=== PATIENT | male | born 1940 | race Two or more races ===

== ENCOUNTER → 2024-05-07 | Outpatient (CLI) | payer MEDICARE, MEDICAID, SELFPAY ==
--- NOTE | 2024-05-07 14:00 | XR_ITS ---
Examination: Soft tissue extremity right groin TECHNIQUE: Multiple high resolution grayscale sonographic images soft tissue right groin Exam date and time: May 07, 2024 1352 hours INDICATIONS: Clinical diagnosis right inguinal hernia 6 months FINDINGS: Bowel present in right inguinal hernia defect, peristalsis present in the defect, the defect at least 8 cm in dimension IMPRESSION: Bowel containing right inguinal hernia defect Consider CT scan pelvis follow-up to best assess for incarcerated bowel
== END | disposition home or self-care (01) ==
PROVIDERS: PCP Nurse Practitioner; Referring Provider Nurse Practitioner; Visit Provider Nurse Practitioner
DX: K40.90 Unilateral inguinal hernia, without obstruction or gangrene, not specified as recurrent (principal)
CPT/HCPCS: 76882

== ENCOUNTER 2024-05-21 07:20 | Day surgery (SDC) | payer MEDICARE, MEDICAID, SELFPAY ==
[2024-05-21] VITALS (10 sets, daily range): BP systolic 137–161; BP diastolic 62–70; PULSE 44–68; RESP 12–20; TEMP 36.2–36.6; O2SAT 95–100; BMI 23.1
--- NOTE | 2024-05-21 07:10 | EKG_ITS ---
[facility] Test Date: 2024-05-21 Pat Name: CHLOE DARDEN Department: Room: - Gender: Male Side Guider: MAXIMILIAN : 1940 Requested By: Haris Douglass Order Number: [id number] Reading MD: Haris Douglass Measurements Intervals [place] Rate: 45 P: 60 OR: 197 QRS: -34 QRSD: 146 T: 31 QT: 462 QTc: 401 Interpretive Statements SINUS BRADYCARDIA MARKED LEFT AXIS DEVIATION RIGHT BUNDLE BRANCH BLOCK Compared to ECG 02/14/2023 19:17:51 Left-axis deviation now present Sinus rhythm no longer present Left anterior fascicular block no longer present /store/S0/[id number]/ecg/[id number].pdf
--- NOTE | 2024-05-21 07:39 | CHAP ---
Patient expressed gratitude for prayer before their procedure.
[2024-05-21 08:04] LABS: Basophils # (Auto) 0.1 Thou/mm3 (0.0-0.2); Basophils % (Auto) 1 % (0-2.5); Eosinophils # (Auto) 0.3 Thou/mm3 (0.0-0.5); Eosinophils % (Auto) 4 % (0-10); Hemoglobin 14.4 g/dL (13.5-16.0); Immature Granulocytes % (Auto) 1 % (0-0); Immature Granulocytes Auto 0.04 Thou/mm3 (0.00-0.00); Lymphocytes # (Auto) 3.2 Thou/mm3 (1.0-4.8); Lymphocytes % (Auto) 38 % (10-50); Mean Corpuscular HGB Conc 33.5 g/dl (31.0-37.0); Mean Corpuscular Hemoglobin 32.4 pg (25.0-35.0); Mean Corpuscular Volume 97 fL (80-100); Monocytes # (Auto) 0.6 Thou/mm3 (0.0-0.8); Monocytes % (Auto) 8 % (0-12); Neutrophils # (Auto) 4.2 Thou/mm3 (1.8-7.7); Neutrophils % (Auto) 49 % (37-80); Nucleated Red Blood Cell % 0 /100 WBC (0); Platelet Count 234 Thou/mm3 (140-440); RDW Standard Deviation 44.4 fL (35.1-43.9); Red Blood Count 4.44 Miln/mm3 (4.50-5.90); White Blood Count 8.4 Thou/mm3 (3.8-10.6)
[2024-05-21] MEDS: RINGERS LACTATED 1000 ML 1,000 ML 20 ML IV (08:18)
[2024-05-21 08:24] LABS: Partial Thromboplastin Time 23.3 Seconds (22.0-36.0); Prothrombin Time 10.6 Seconds (9.0-12.2)
[2024-05-21 08:35] LABS: Alanine Aminotransferase 9 U/L (10-49); Albumin, Serum 4.7 gm/dL (3.4-4.8); Alkaline Phosphatase 59 U/L (46-116); Anion Gap 10 (7-16); Aspartate Amino Transferase 16 U/L (0-34); BUN/Creatinine Ratio 24 Ratio (12-20); Bilirubin,Total 0.6 mg/dL (0.3-1.2); Blood Urea Nitrogen 29 mg/dL (9-23); Calcium 9.6 mg/dL (8.3-10.6); Calcium (Corrected) 9.6 mg/dL (8.5-10.1); Carbon Dioxide 25.4 mMol/L (20.0-31.0); Chloride 106 mMol/L (98-107); Creatinine (Component) 1.2 mg/dL (0.6-1.3); Estimated Creatinine Clearance 39.1 mL/min (>60); Globulin 2.4 gm/dL (2.3-3.5); Glucose 111 mg/dL (74-106); Osmolality,Calculated 288 (275-295); Potassium 3.8 mMol/L (3.4-5.1); Sodium 141 mMol/L (136-145); Total Protein 7.1 gm/dL (5.7-8.2); eGFR > 60 See Note
--- NOTE | 2024-05-21 13:54 | PD.SUROPNT ---
Date of Procedure 05/21/24 Pre Op Diagnosis Symptomatic umbilical hernia Symptomatic right inguinal hernia Post Op Diagnosis Same indirect right inguinal hernia Procedure Repair of the umbilical hernia with primary closure Repair of the right indirect inguinal hernia with high ligation of the sac and placement of 2 x 4 Marlex mesh on the floor of the inguinal canal. Findings Patient is found to have an umbilical hernia containing omentum which was treated with primary closure. Patient also was found to have an indirect hernia with omentum and the contents which was suture-ligated and. Procedure Description After the patient was brought to the operating room endotracheal anesthesia was given. His anterior abdomen was prepped with ChloraPrep solution and draped in a sterile manner. Time out was performed. I approached the umbilical hernia first. I made a curved incision below the umbilicus after injecting with half percent Marcaine. Skin edges were retracted with 7 retractor on the hernial defect was identified easily. It contained omentum. It was from the umbilical skin and the defect easily admitted 1 and half fingers. This is at least 2 cm in diameter but it was not circular. Because of his age of [age] years old I decided to just do the primary closure which will be without any tension. Therefore I used 3 sutures of 0 Ethibond on 1 suture of 2-0 Prolene to repair the defect. Then the umbilical skin was attached to the lower flap with subcuticular approximation. Dressing was applied with Adaptic and 4 x 4 gauze Then attention was turned onto the right groin where indirect inguinal hernia was seen. . Standard right groin incision was made in the external oblique was reached. Incision was made over the external oblique and the patient was found to have a large sac next to the cord structures. The cord structures were encircled around a Douglas drain and the sac was easily . It was opened and was found to contain omentum. Patient had a narrow opening in this hernial sac in the mouth of the internal ring was not wide.. I suture ligated this with 2-0 chromic and then divided. Another 2-0 chromic suture ligation was used to prevent any slippage of the previous suture. Then I palpated the floor of the inguinal canal which appeared to be strong. There was a slight weakness but because of his age I did not see any need for reconstruction of the inguinal. I placed a 2 x 4 Marlex mesh and attached it medially to the pubic tubercle and laterally it was tucked underneath the external oblique after crossing the cord structures. I placed one stitch of Prolene lateral to the cord structures. Then external oblique was closed with running 2-0 Vicryl and subcutaneous tissues was approximated with 30 plain I injected half percent Marcaine with epinephrine for analgesia and the skin was closed with 4-0 Monocryl. Dressing was applied with Adaptic and 4 x 4 and the patient tolerated the procedure well and left operating room in stable condition. Anesthesia GETA Implants 2 x 4 Marlex mesh over the inguinal floor Pathology / specimen None IVF Infused 700 Estimated Blood Loss 20 Surgeon Wm Nguyen MD Surgical Staff Operation Date: 05/21/24 11:30 Case Staff [employer] OUT: Hakeem Barnett RNstation repairer: Letty Streeter
--- NOTE | 2024-05-21 14:03 | SUR.PHASEI ---
1403: Pt. arrived with oral airway in place, vitals stable, breathing unlabored, no signs of distress, x2 dressing to ABD CDI, no active bleed noted, report received from Siva LINK and Ramu FRANCO.
[2024-05-21] MEDS: ACETAMINOPHEN IVPB 1,000 MG/100 ML VIAL 250 MG IV (14:29)
[2024-05-21] MEDS: fentaNYL CIT INJ 50 mCg/ML AMP 2ML IV (14:35)
--- NOTE | 2024-05-21 15:20 | SUR.PHASEII ---
1520: Pt. AAOx4, vitals stable, breathing unlabored, no complaint of pain or nausea, dressing to ABD CDI, no active bleed noted, pt. tolerated sips of water well, pt. ambulated to wheelchair with steady gait and no assist, no complications. Gave discharge instructions to the pt. and her ride, both verbalized understanding and had no further questions. Pt. left wtih all personal belongings.
== END 2024-05-21 15:20 | disposition home or self-care (01) ==
PROVIDERS: PCP Nurse Practitioner; Referring Provider Surgery; Visit Provider Surgery
PROC: (CPT 49505; principal; 2024-05-21 11:15)
PROC: (CPT 49505; 2024-05-21 11:15)
DX: K40.90 Unilateral inguinal hernia, without obstruction or gangrene, not specified as recurrent (principal); K42.9 Umbilical hernia without obstruction or gangrene; Z01.810 Encounter for preprocedural cardiovascular examination
CPT/HCPCS: 49505; 49591; 36415; 80053; 85025; 85610; 85730; 93005; A4217; A4649; C1781; J0131; J2704; J3010; J3490; J7120

== ENCOUNTER 2024-12-14 07:30 | Day surgery (SDC) | payer MEDICARE, MEDICAID, SELFPAY ==
--- NOTE | 2024-12-05 06:34 | EKG_ITS ---
[facility] Test Date: 2024-12-05 Pat Name: CHLOE DARDEN Department: Room: - Gender: Male Life Coach: RAJINDER : 1940 Requested By: Marcell Rizvi Order Number: [id number] Reading MD: Marcell Rizvi Measurements Intervals [place] Rate: 46 P: 16 [place]: 185 QRS: -17 QRSD: 134 T: 32 QT: 435 QTc: 384 Interpretive Statements SINUS BRADYCARDIA RIGHT BUNDLE BRANCH BLOCK [120+ ms QRS DURATION, UPRIGHT V1, 40+ ms S IN I/aVL/V4/V5/V6] Compared to ECG 05/21/2024 07:43:47 Left-axis deviation no longer present /store/S0/[id number]/ecg/[id number].pdf
[2024-12-05 09:20] VITALS: BMI 26.4
[2024-12-05 09:53] LABS: Collection Type, Urine Clean Catch; Squamous Epithelial Cell,Urine 0 /hpf (0-5)
[2024-12-05 10:34] LABS: Basophils # (Auto) 0.1 Thou/mm3 (0.0-0.2); Basophils % (Auto) 1 % (0-2.5); Eosinophils # (Auto) 0.4 Thou/mm3 (0.0-0.5); Eosinophils % (Auto) 5 % (0-10); Hematocrit 38.7 % (41.0-53.0); Hemoglobin 13.5 g/dL (13.5-16.0); Immature Granulocytes Auto 0.07 Thou/mm3 (0.00-0.00); Lymphocytes # (Auto) 3.2 Thou/mm3 (1.0-4.8); Lymphocytes % (Auto) 35 % (10-50); Mean Corpuscular HGB Conc 34.9 g/dl (31.0-37.0); Mean Corpuscular Hemoglobin 33.8 pg (25.0-35.0); Mean Corpuscular Volume 97 fL (80-100); Monocytes # (Auto) 0.7 Thou/mm3 (0.0-0.8); Monocytes % (Auto) 8 % (0-12); Neutrophils # (Auto) 4.6 Thou/mm3 (1.8-7.7); Neutrophils % (Auto) 50 % (37-80); Nucleated Red Blood Cell # 0.00 Thou/mm3 (0.00-0.00); Nucleated Red Blood Cell % 0 /100 WBC (0); Platelet Count 248 Thou/mm3 (140-440); RDW Standard Deviation 45.1 fL (35.1-43.9); Red Blood Count 3.99 Miln/mm3 (4.50-5.90); White Blood Count 9.1 Thou/mm3 (3.8-10.6)
[2024-12-05 10:39] LABS: Bilirubin,Urine Negative (Negative); Blood,Urine Negative (Negative); Clarity,Urine Clear (Clear/Hazy); Color,Urine Colorless (Lt Yel-Yel); Glucose, Urine 3+ (Negative); Ketones,Urine Negative (Negative); Leukocyte Esterase,Urine Negative (Negative); Nitrite,Urine Negative (Negative); PH,Urine 6.5 (5.0-7.0); Protein,Urine Negative (Neg - Trace); RBC,Urine 3 /hpf (0-3); Specific Gravity,Urine 1.007 (1.001-1.035); Urobilinogen,Urine Negative mg/dL (0.0-1.0); WBC,Urine 1 /hpf (0-5)
[2024-12-05 11:03] LABS: Alanine Aminotransferase 8 U/L (10-49); Albumin, Serum 4.3 gm/dL (3.4-4.8); Albumin/Globulin Ratio 2.0 (1.2-2.2); Alkaline Phosphatase 55 U/L (46-116); Anion Gap 5 (7-16); Aspartate Amino Transferase 18 U/L (0-34); BUN/Creatinine Ratio 19 Ratio (12-20); Bilirubin,Total 0.8 mg/dL (0.3-1.2); Blood Urea Nitrogen 17 mg/dL (9-23); Calcium 9.2 mg/dL (8.3-10.6); Calcium (Corrected) 9.2 mg/dL (8.5-10.1); Carbon Dioxide 24.7 mMol/L (20.0-31.0); Chloride 108 mMol/L (98-107); Creatinine (Component) 0.9 mg/dL (0.6-1.3); Estimated Creatinine Clearance 49.2 mL/min (>60); Globulin 2.2 gm/dL (2.3-3.5); Glucose 99 mg/dL (74-106); Osmolality,Calculated 277 (275-295); Potassium 4.2 mMol/L (3.4-5.1); Sodium 138 mMol/L (136-145); Total Protein 6.5 gm/dL (5.7-8.2); eGFR > 60 See Note
--- NOTE | 2024-12-05 11:18 | SUR.PREOP ---
Pt prostate biopsy was moved from Tuesday12/11/24 to 12/14/24. Pt was notified.
--- NOTE | 2024-12-05 12:49 | SUR.PREOP ---
Pt's Brooke notified of surgery day changed, pt to come in at 0730 on Tuesday.
--- NOTE | 2024-12-13 12:47 | ESHP_ITS ---
RE: CHLOE DARDEN : 1940 DATE OF ADMISSION: 12/13/2024 HISTORY OF PRESENT ILLNESS: The patient is an 84-year-old gentleman who was referred to me with a history of elevated prostatic specific antigen. He is scheduled to have cystoscopy and transrectal prostatic ultrasound with ultrasound-guided prostatic needle biopsy. His PSA is 7.3. He has a prostatism with nocturia two times. He uses a brief at nighttime because he has incontinence. PAST SURGICAL HISTORY: Included hydrocelectomy done before and a hernia operation done before and had a fistula operation before. He had a right shoulder operation and a cochlear implantation. SOCIAL HISTORY: He has seven kids. ALLERGIES: NONE KNOWN. PAST MEDICAL HISTORY: He has a history of diabetes mellitus and history of hypertension. HOME MEDICATIONS: He takes: 1. Hydralazine. 2. Jardiance. 3. Metformin. 4. Norvasc. 5. Statin medication. 6. Omeprazole. 7. Terazosin 2 mg. 8. Hydrochlorothiazide. 9. Metoprolol. PHYSICAL EXAMINATION: Clinical examination reveals HEENT: Normal. Neck: Supple. Lungs: Clear. Heart: Sounds are normal. Abdomen: Soft without any organomegaly. No guarding. No rigidity. Extremities: Normal. Genitourinary: Phallus is normal. Testes are down in the scrotum. Rectal: Reveals moderately enlarged smooth prostate. IMPRESSION: Prostatism and prostatic obstruction. PLAN: Cystoscopy and transrectal prostatic ultrasound with ultrasound-guided prostatic needle biopsy. Planned procedure risks and complications have been discussed with the patient. The patient has understood them and agreed to proceed. DT: 11:52:23 TT: 12:43:00 Ref: [id number] - TID: [id number]
[2024-12-14] VITALS (8 sets, daily range): BP systolic 112–148; BP diastolic 52–69; PULSE 50–56; RESP 13–20; TEMP 36.7–36.8; O2SAT 96–100; BMI 27.2
[2024-12-14] MEDS: RINGERS LACTATED 1000 ML 1,000 ML 20 ML IV (08:35)
--- NOTE | 2024-12-14 08:45 | SUR.PREOP ---
Patient expressed gratitude for prayer before heir procedure.
--- NOTE | 2024-12-14 10:21 | SUR.PHASEI ---
1021 Patient arrived to recovery resting comfortably in [facility], on oxygen via oxy mask, breathing unlabored, vital signs stable, denies pain and nausea, report received from Ryder FRANCO/Levon QUINTEROS and Charlie LINK
--- NOTE | 2024-12-14 11:02 | ESOP_ITS ---
RE: CHLOE DARDEN : 1940 DATE OF OPERATION: 12/14/2024 PREOPERATIVE DIAGNOSES: Prostatism, prostatic obstruction, elevated PSA of 7.3. POSTOPERATIVE DIAGNOSES: Prostatism, prostatic obstruction, elevated PSA of 7.3. PROCEDURES PERFORMED: Cystoscopy, urethral dilatation, transrectal prostatic ultrasound with ultrasound-guided prostatic needle biopsy. ANESTHESIA: Monitored anesthesia. INDICATION: The patient is an 84-year-old gentleman with history of prostatism with nocturia x2, elevated PSA of 7.3. Rectally, he has a moderately enlarged smooth prostate without any hard nodules. He is now scheduled to have cystoscopy and transrectal prostatic ultrasound with ultrasound-guided prostatic needle biopsy. Planned procedure, risks and complications have been discussed with the patient. The patient has understood them and agreed to proceed. DESCRIPTION OF PROCEDURE: After the patient was brought to the operating table under adequate monitored anesthesia and dorsal lithotomy position, parts were prepped and draped in the usual fashion. Cystoscopy was carried out, which revealed adequate urethral meatus, normal-appearing urethra, moderately enlarged smooth bilobed prostate. Scope was introduced into the bladder. Residual urine 5 ounces yellow and clear. It was sent for culture and sensitivity examination. There were small bladder diverticula. There were no intravascular stones or tumors. Ureteral orifice were found to be normal in position and appearance. Scope was withdrawn. The urethra was dilated. Transrectal prostatic ultrasound was carried out. Volume was measured at 43.5 cubic cm. Biopsies were obtained from both lobes using ultrasound guidance. In all, about 8 biopsies were obtained from the prostate. The patient tolerated the entire procedure well and left the room in good condition. DT: 10:27:30 TT: 10:59:00 Ref: [id number] - TID: [id number]
--- NOTE | 2024-12-14 11:26 | SUR.PHASEII ---
1126 Patient meets discharge criteria from recovery, awake and alert, breathing unlabored, vital signs stable, denies pain, ate two jello and drinking water; denies nausea, able to dress himself into his clothing, voided in a urinal prior to discharge, discharge instructions given to patient and , signed discharge instructions. Patient given all his belongings prior to discharge, transported via wheelchair and left in a private vehicle.
== END 2024-12-14 11:26 | disposition home or self-care (01) ==
PROVIDERS: Anesthesiology; PCP Family Medicine; Referring Provider Surgery; Visit Provider Surgery
PROC: (CPT 55700; principal; 2024-12-14 09:30)
PROC: 0TJB8ZZ Inspection of Bladder, Via Natural or Artificial Opening Endoscopic (ICD-10-PCS; CPT 52000; 2024-12-14 09:30)
DX: N40.1 Benign prostatic hyperplasia with lower urinary tract symptoms (principal); Z01.810 Encounter for preprocedural cardiovascular examination; R97.20 Elevated prostate specific antigen [PSA]; R35.1 Nocturia
CPT/HCPCS: 55700; 52281; 36415; 80053; 81001; 85025; 87086; 93005; A4217; A4649; J0694; J2704; J7120

== ENCOUNTER → 2025-01-18 | Outpatient (CLI) | payer MEDICARE, MEDICAID, SELFPAY ==
--- NOTE | 2025-01-18 15:57 | XR_ITS ---
Examination: Shoulder,left, 3 views Technique: Shoulder AP internal rotation, AP external rotation, Y view shoulder, 3 views Exam date and time :January 18, 2025 1519 hours INDICATIONS: Patient fell 2 months ago with injury to the shoulder, shoulder pain FINDINGS: Prominent osteopenia Advanced osteoarthritis glenohumeral joint No shoulder fracture or dislocation IMPRESSION: Advanced osteoarthritis glenohumeral joint
--- NOTE | 2025-01-18 16:04 | XR_ITS ---
Examination: PA lateral chest 2 views TECHNIQUE: Bipedal lateral chest 2 views Date and time: January 18, 2025 1536 hours INDICATIONS: Coughing beginning 2 months ago. FINDINGS: Accentuation basilar bronchovascular markings. Mild prominence left ventricle. No pulmonary edema Prominent osteopenia IMPRESSION: Basilar bronchitis pattern
== END | disposition home or self-care (01) ==
LOC: CDIM 15:43
PROVIDERS: PCP Family Medicine; Referring Provider Nurse Practitioner; Visit Provider Nurse Practitioner
DX: M19.012 Primary osteoarthritis, left shoulder (principal); R05.9 Cough, unspecified
CPT/HCPCS: 71046; 73030

== ENCOUNTER → 2025-06-05 | Outpatient (CLI) | payer MEDICARE, MEDICAID, SELFPAY ==
--- NOTE | 2025-06-05 12:18 | XR_ITS ---
EXAMINATION: PA lateral chest 2 views TECHNIQUE: Upright PA and lateral chest 2 views Date and time: 731, 2024, 1228 hours INDICATION: Coughing 6 months. FINDINGS: Moderate enlargement left ventricle Mild vascular congestion No lobar pneumonia No pulmonary edema IMPRESSION: Mild vascular congestion No lobar pneumonia or pulmonary edema
== END | disposition home or self-care (01) ==
PROVIDERS: PCP Nurse Practitioner; Referring Provider Nurse Practitioner; Visit Provider Nurse Practitioner
DX: R09.89 Other specified symptoms and signs involving the circulatory and respiratory systems (principal)
CPT/HCPCS: 71046